=== PATIENT | female | born 1990 | race Caucasian/White ===

== ENCOUNTER 2017-01-23 23:23 | Emergency (ER) | payer OTHER ==
[~2017-01-23] VITALS: Ht 167.6 cm; Wt 83.9 kg
[2017-01-23 23:50] VITALS: BP_SYST 127
--- NOTE | 2017-01-23 23:50 | NUR ---
Patient triaged and placed in waiting room. VSS and patient appears in no acute distress at this time. Accompanied by friend, awaiting available bed, and MD notified of need for MSE.
--- NOTE | 2017-01-24 00:50 | NUR ---
Patient to ER bed 6 to gown for evaluation. Side rails up. Report given to MATTHEW Castillo.
--- NOTE | 2017-01-24 00:58 | NUR ---
Pt. presented to ED with c/o right hand pain s/p fall down the stairs. Pt. states her right pinky finger "maybe fractured". Pt. c/o pain when moving finger. Slight bruising noted on right lateral side of hand Addendum: 01/24/17 at 0146 by [email or web address] Left hand
--- NOTE | 2017-01-24 01:00 | NUR ---
Pt. to Xray
--- NOTE | 2017-01-24 01:09 | NUR ---
Pt. back from Xray
--- NOTE | 2017-01-24 01:21 | NUR ---
ER at bedside examining patient.
--- NOTE | 2017-01-24 01:29 | NUR ---
Note undone in EDM - 01/24/17 at 0130 by SDEDSJ Patient given written and verbal discharge instructions and verbalizes understanding. ER discussed with patient the results and treatment provided. Patient in stable condition. ID arm band removed. No Rx given. Patient educated on pain management and to follow up with PMD. Pain Scale 8/10 Opportunity for questions provided and answered.
[2017-01-24] MEDS ORDERED: KETOROLAC TROMETHAMINE 60 MG/2 ML VIAL IM ONE (01:30)
--- NOTE | 2017-01-24 01:53 | NUR ---
Patient given written and verbal discharge instructions and verbalizes understanding. ER MD discussed with patient the results and treatment provided. Patient in stable condition. ID arm band removed. Rx of Motrin given. Patient educated on pain management and to follow up with PMD. Pain Scale 2/10 Opportunity for questions provided and answered.
[2017-01-24 01:56] VITALS: BP_SYST 122
== END 2017-01-24 01:53 | disposition home or self-care (01) ==
LOC: SED 23:23
DX: S60.212A Contusion of left wrist, initial encounter (principal); F17.200 Nicotine dependence, unspecified, uncomplicated; W10.8XXA Fall (on) (from) other stairs and steps, initial encounter; Y93.89 Activity, other specified; Y92.89 Other specified places as the place of occurrence of the external cause; Y99.8 Other external cause status
CPT/HCPCS: 73110; 81025; 96372; 99284; J1885